=== PATIENT | female | born 1935 | race Caucasian/White ===

== ENCOUNTER 2016-10-17 17:23 | Emergency (ER) | payer MEDICARE, OTHER ==
[~2016-10-17] VITALS: Ht 157.5 cm; Wt 54.4 kg
--- NOTE | ~2016-10-17 | CT71 ---
[facility] A Service of [facility] RADIOLOGY TEXT RESULTS PATIENT: TREMAYNE OSMAN LOCATION: [facility] : 31 UNIT #: [id number] AGE: [address]: Sawyer Hannon MD SEX: F ORDER DR: [id number] [facility] [address] [place], [place] [address] [id number] MR#: [id number] Acc #: [id number] NAME: TREMAYNE OSMAN. : 1935 SEX: F STUDY DATE/TIME: 10/17/2016 18:40 UNIT: [facility] ROOM: STUDY DESCRIPTION: CT Head Wo Contrast Attending Physician: Sawyer Hannon M.D. Ordering Physician: Sawyer Hannon M.D. Primary Care Physician: Rick Benoit M.D. MEDICAL IMAGING REPORT This report is preliminary unless electronic signature is present EXAM CT head without contrast DATE: 10/17/2016 HISTORY Tripped and fell with multiple contusions, facial swelling and head pain today. COMPARISON Noncontrast CT head 08/18/2007. The CT exam was performed with one or more of the following radiation dose reduction techniques: automatic exposure control, adjustment of mA and/or kV according to patient size, and iterative reconstruction. FINDINGS Extensive hypodensities are present within the deep white matter of the brain, greatest in a periventricular distribution, thought to represent changes of chronic microvascular disease. These findings have progressed since the 08/18/2007 examination. [place] matter- white matter junction distinction appears preserved, without CT evidence of acute or evolving infarct. No intracranial hemorrhage, mass lesion, mass effect or midline shift is seen. Mild intracranial carotid artery calcifications and vertebral artery calcifications are present. No displaced calvarial fracture is identified. Mastoid air cells appear clear. Major paranasal sinuses appear clear. IMPRESSION 1. No acute intracranial findings. 2. Moderate to moderately advanced chronic microvascular disease changes within the deep white matter, progressed since 08/18/2007. 3. Mild age-appropriate atrophy. [facility] A Service [facility] RADIOLOGY TEXT RESULTS PATIENT: TREMAYNE OSMAN LOCATION: [facility] : 31 UNIT #: [id number] AGE: [address]: Sawyer Hannon MD SEX: F ORDER DR: Dictated by... Paula Osman M.D. THIS IS AN ELECTRONICALLY VERIFIED REPORT Paula Osman M.D. at 10/20/2016 8:52 AM HERRERA/nixon TD: 10/18/2016 09:55 JOB #: [id number] MEDICAL IMAGING REPORT Page 1 of 1 COPY
--- NOTE | ~2016-10-17 | CT101 ---
[facility] A Service of [facility] RADIOLOGY TEXT RESULTS PATIENT: TREMAYNE OSMAN LOCATION: [facility] : 33 UNIT #: [id number] AGE: [address]: Sawyer Hannon MD SEX: F ORDER DR: [id number] [facility] [address] [place], [place] [address] [id number] E MR#: [id number] Acc #: [id number] NAME: TREMAYNE OSMAN. : 1935 SEX: F STUDY DATE/TIME: 10/17/2016 18:40 UNIT: [facility] ROOM: STUDY DESCRIPTION: CT Maxillofacial Area Wo Cont Attending Physician: Sawyer Hannon M.D. Ordering Physician: Sawyer Hannon M.D. Primary Care Physician: Rick Benoit M.D. MEDICAL IMAGING REPORT This report is preliminary unless electronic signature is present EXAM CT maxillofacial area without contrast. HISTORY Patient tripped and fell with multiple contusions and facial swelling, head pain today. She fell at a gas station face first onto concrete, complains of frontal pain and nasal abrasion with upper lip swollen. The CT exam was performed with one or more of the following radiation dose reduction techniques: automatic exposure control, adjustment of mA and/or kV according to patient size, and iterative reconstruction. COMMENT CT of the facial bones performed in the axial plane without contrast Followed by sagittal and coronal reconstructed images. There is a separate head CT. There is some soft tissue swelling along the bridge of the nose and there may be a tiny nondisplaced fracture but no significantly displaced nasal bone fracture is appreciated. Nasal septum is not deviated. The temporomandibular joints are located. The mastoid air cells are clear. The visualized paranasal sinuses are clear. 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 Patient is partially edentulous. There are atherosclerotic vascular calcifications partly seen at the base of the brain. The globes are intact. The lenses are located. There is a large amount of soft tissue swelling upper lobe area consistent with provided history. IMPRESSION 1. There may be a essentially nondisplaced of fracture fragment at the [facility] A Service of [facility] RADIOLOGY TEXT RESULTS PATIENT: TREMAYNE OSMAN LOCATION: [facility] : 33 UNIT #: [id number] AGE: [address]: Sawyer Hannon MD SEX: F ORDER DR: bridge of the nose from the nasal bones but no displaced facial bone fracture is seen. There is soft tissue swelling along the bridge of the nose and also considerable soft tissue swelling at the upper lip no radiopaque foreign body is appreciated. 2. 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 3. There is no sinus air-fluid level. The globes are intact and lines are located. Dictated by... Adelia Broderick M.D. THIS IS AN ELECTRONICALLY VERIFIED REPORT Adelia Broderick M.D. at 10/18/2016 11:21 AM LIONEL/nixon TD: 10/18/2016 10:19 JOB #: [id number] MEDICAL IMAGING REPORT Page 1 of 1 COPY
[~2016-10-17 17:23] MED LIST: ASPIRINEC; ASPIRINEC PO; CLOPIDOGREL75 MG PO; HCTZ PO; ISOSORBIDE MONO10 MG PO; KCL; LISINOPRIL; LISINOPRIL PO; LISINOPRIL10 MG PO; LOPRESSOR; LOPRESSOR PO; LORTAB 7.5-5001 TAB PO; MICRO-K PO; NITROGLYGERIN0.4 MG SL; PLENDIL; PLENDIL PO; PREMARIN; PREMARIN PO; PREMARIN0.625 MG PO; PRINIVIL10 MG PO; PROTONIX PO; ST JOSEPH ASPIR81 M1 PO; ZOCOR PO
== END 2016-10-17 19:52 | disposition home or self-care (01) ==
LOC: CED 17:23
DX: S02.2XXA Fracture of nasal bones, initial encounter for closed fracture (principal); S61.411A Laceration without foreign body of right hand, initial encounter; S80.212A Abrasion, left knee, initial encounter; S80.211A Abrasion, right knee, initial encounter; S80.811A Abrasion, right lower leg, initial encounter; I10 Essential (primary) hypertension; Z88.2 Allergy status to sulfonamides; W01.0XXA Fall on same level from slipping, tripping and stumbling without subsequent striking against object, initial encounter; Y92.524 Gas station as the place of occurrence of the external cause
CPT/HCPCS: 70450; 70486; 99284